=== PATIENT | male | born 1975 | race Hispanic/Latino ===

== ENCOUNTER 2020-10-29 14:39 | Emergency (ER) | payer BC | END 2020-10-29 15:03 | disposition home or self-care (01) | LOC: NAV ERS 14:39 | DX: G51.0 Bell's palsy (principal) | CPT/HCPCS: 99283 ==

== ENCOUNTER 2020-11-10 18:49 | Emergency (ER) | payer BC ==
[2020-11-10] MEDS ORDERED: Sodium Chloride 0.9% 1,000 ML ONE (19:31)
[2020-11-10] MEDS ORDERED: Meclizine HCl 25 MG TAB ONE (19:31)
[2020-11-10 19:53] LABS: #Basophils 0.1 thou/uL (0.0-0.2); #Eosinphils 0.2 thou/uL (0.0-0.7); #Lymphocytes 2.1 thou/uL (1.20-3.40); #Monocytes 0.9 thou/uL (0.11-0.59); #Neutrophils 9.7 thou/uL (1.40-6.50); %Basophils 0.8 % (0.0-1.0); %Eosinophils 1.4 % (0.0-10.0); %Lymphocytes 16.3 % (21.0-51.0); %Monocytes 7.1 % (0.0-10.0); %Neutrophils 74.5 % (42.0-75.0); Hemoglobin 16.2 g/dL (14.0-18.0); Mean Corpuscular Hemoglobin 31.3 pg (27.0-31.0); Mean Platelet Volume 9.4 fL (7.4-10.4); Platelet Count 261 thou/uL (130-400); RBC Distribution Width 12.2 % (11.5-14.5); Red Blood Cell (RBC) Count 5.19 mill/uL (4.70-6.10)
[2020-11-10 19:58] LABS: Bilirubin Negative (Negative); Blood, Urine Negative (Negative); Clarity Clear (Clear); Glucose, Urine (Dipstick) Negative (Negative); Ketone, Urine Negative (Negative); Leukocyte Negative (Negative); Nitrite Negative (Negative); Protein, Urine (Dipstick) Negative (Neg-Trace); Specific Gravity, Urine 1.025 (1.005-1.030)
[2020-11-10 20:06] LABS: Anion Gap 13 mmol/L (10-20); BUN (Urea Nitrogen) 12 mg/dL (8.9-20.6); Bilirubin, Total 1.5 mg/dL (0.2-1.2); Calc. Creatinine Clearance 0 mL/min (70-130); Calcium 8.9 mg/dL (7.8-10.44); Carbon Dioxide 25 mmol/L (22-29); Chloride 100 mmol/L (98-107); Glucose 125 mg/dL (70-105); Potassium 3.9 mmol/L (3.5-5.1); Protein, Total 7.4 g/dL (6.0-8.3); Sodium 134 mmol/L (136-145)
[2020-11-10 20:07] LABS: ALT (SGPT) 24 U/L (8-55); AST (SGOT) 14 U/L (5-34); Albumin 4.1 g/dL (3.5-5.0); Alkaline Phosphatase 64 U/L (40-110); Globulin 3.3 g/dL (2.4-3.5)
== END 2020-11-10 21:20 | disposition home or self-care (01) ==
LOC: NAV ERS 18:49
DX: K52.9 Noninfective gastroenteritis and colitis, unspecified (principal); N40.0 Benign prostatic hyperplasia without lower urinary tract symptoms; H65.91 Unspecified nonsuppurative otitis media, right ear
CPT/HCPCS: 80053; 81003; 85025; 99284; J7050

== ENCOUNTER 2021-02-20 05:31 | Emergency (ER) | payer BC ==
[2021-02-20] MEDS ORDERED: methylPREDNISolone Acetate 40 mg/ml Vial ONE (06:05)
== END 2021-02-20 06:25 | disposition home or self-care (01) ==
LOC: NAV ERS 05:31
DX: S39.012A Strain of muscle, fascia and tendon of lower back, initial encounter (principal); X58.XXXA Exposure to other specified factors, initial encounter
CPT/HCPCS: 96372; 99283; J2920

== ENCOUNTER 2025-07-05 20:06 | Emergency (ER) | payer BC, OTHER ==
[2025-07-05] MEDS ORDERED: Bacitracin 1 PK ONE (21:06)
[2025-07-05] MEDS ORDERED: Clindamycin 150 MG CAP ONE (21:06)
== END 2025-07-05 21:14 | disposition home or self-care (01) ==
LOC: NAV ERS 20:06
DX: L98.439 Non-pressure chronic ulcer of abdomen with unspecified severity (principal); L03.311 Cellulitis of abdominal wall; I10 Essential (primary) hypertension; E10.40 Type 1 diabetes mellitus with diabetic neuropathy, unspecified; F17.220 Nicotine dependence, chewing tobacco, uncomplicated
CPT/HCPCS: 87070; 87205; 99283